=== PATIENT | male | born 1955 | race African-American/Black ===

== ENCOUNTER 2017-10-26 12:01 | Emergency (ER) | payer BC | END 2017-10-26 13:31 | disposition home or self-care (01) | LOC: ER 12:01 | DX: L29.9 Pruritus, unspecified (principal); R21 Rash and other nonspecific skin eruption; I10 Essential (primary) hypertension; F17.210 Nicotine dependence, cigarettes, uncomplicated; Z88.0 Allergy status to penicillin; W57.XXXA Bitten or stung by nonvenomous insect and other nonvenomous arthropods, initial encounter; Y93.89 Activity, other specified; Y92.89 Other specified places as the place of occurrence of the external cause; Y99.8 Other external cause status | CPT/HCPCS: 99283 ==